=== PATIENT | male | born 1955 | race Caucasian/White ===

== ENCOUNTER 2020-08-07 12:45 | Inpatient (IN) | payer MEDICARE, MEDICAID ==
[~2020-08-07] VITALS: Ht 182.9 cm; Wt 88.0 kg
--- NOTE | ~2020-08-07 | OP ---
[address] [address] OPERATIVE REPORT Name: GRISELDA ZAVALA Room: [address] IN .R.#: [id number] Admission: 08/07/20 Attend Phys: Ameena Oconnor MD Discharge: Date of : 51 Report #: [id number] THIS REPORT FOR: //name// cc: MARIA C Abel family physician/PCP MARIAC Abel family physician/PCP ~ CC: [facility] physician/PCP Ameena Oconnor DATE OF SERVICE: 08/08/2020 PREOPERATIVE DIAGNOSIS: Acute cholecystitis. POSTOPERATIVE DIAGNOSIS: Acute cholecystitis. OPERATION: Laparoscopic cholecystectomy with intraoperative cholangiogram. SURGEON: Grady Munoz MD ANESTHESIA: General. ESTIMATED BLOOD LOSS: 50 mL. SPECIMEN: Gallbladder. DESCRIPTION OF PROCEDURE: After informed consent was obtained, the patient was brought to the operating room and placed supine. SCDs were placed and working, preoperative antibiotics were administered, general anesthesia was induced. The abdomen was prepped and draped in the usual sterile fashion. A 10 mm incision was made above the umbilicus. Fascia was incised and a trocar was placed. Pneumoperitoneum was established. Three right upper quadrant 5 mm ports were placed. Gallbladder was grasped at the fundus and retracted cephalad. Infundibulum was grasped and retracted laterally. I dissected out the cystic duct and the cystic artery. Given the amount of inflammation, I elected to perform a cholangiogram. The cystic duct was grasped and a small ductotomy was made. Cholangiogram catheter was inserted. Cholangiogram was performed. This demonstrated filling of the cystic duct, common bile duct, common hepatic duct, bifurcation of the hepatics, flow into the duodenum. This was normal. Catheter was then removed. The cystic duct was clipped and ligated leaving 2 clips on the remaining duct. The cystic artery was clipped and ligated leaving one clip on the remaining artery. Gallbladder was then taken off the liver bed with electrocautery. It was placed into an Endopouch and removed. Fascia was then closed with a [id number] 0 Vicryl. Skin was closed with 4-0 Monocryl. Incisions were [place] [address] OPERATIVE REPORT Name: GRISELDA ZAVALA Room: [address] IN [facility]#: [id number] Admission: 08/07/20 Attend Phys: Ameena Oconnor MD Discharge: Date of : 51 Report #: [id number] COMPLICATIONS: None. DISPOSITION: The patient was taken to recovery in satisfactory condition. By: [id number] Munoz MD /nt
[~2020-08-07 12:45] MED LIST: NOHOMEMEDICATIONS
[2020-08-07 12:57] VITALS: BP 134/83
[2020-08-07 13:28] LABS: ABSOLUTE BASOPHILS 0.1 thou/uL (0.0-0.2); ABSOLUTE EOSINOPHILS 0.1 thou/uL (0.0-0.7); ABSOLUTE LYMPHOCYTES 1.2 thou/uL (0.8-5.3); ABSOLUTE MONOCYTES 1.1 thou/uL (0.0-1.2); ABSOLUTE NEUTROPHILS 10.4 thou/uL (1.6-8.1); BASOPHILS 0.6 %; EOSINOPHILS 1.1 %; HEMATOCRIT 42.7 % (42.0-52.0); HEMOGLOBIN 14.5 gm/dL (14.0-18.0); LYMPHOCYTES 9.4 %; MCH 29.9 pg (26.0-34.0); MCHC 33.9 g/dL (28.0-37.0); MCV 88.2 fL (80.0-100.0); MONOCYTES 8.4 %; MPV 6.2 fl. (7.2-11.1); NUCLEATED RBCS 0 /100WBC; PLATELET COUNT* 484 thou/uL (150-400); POLYS 80.5 %; RBC 4.83 mil/uL (4.50-6.00); RDW-CV 14.8 % (10.5-14.5); WBC 12.9 thou/uL (4.0-11.0)
[2020-08-07 13:38] LABS: APTT 29.8 Seconds (25.0-31.3); INR 1.1; PROTIME 11.7 Seconds (9.20-11.50)
[2020-08-07 13:59] LABS: CALCIUM 8.9 mg/dL (8.5-10.1); CREATININE 1.2 mg/dL (0.6-1.3); POTASSIUM 4.4 mmol/L (3.5-5.1)
[2020-08-07 14:03] LABS: ALBUMIN 3.1 g/dL (3.4-5.0); TOTAL BILIRUBIN 0.8 mg/dL (<0.1-1.0); TOTAL PROTEIN 8.4 g/dL (6.4-8.2)
--- NOTE | 2020-08-07 16:03 | EKG ---
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
[2020-08-07 16:51] LABS: URINE BILIRUBIN NEGATIVE (Negative); URINE BLOOD NEGATIVE (Negative); URINE CLARITY CLEAR; URINE COLOR YELLOW; URINE GLUCOSE-RANDOM NEGATIVE (Negative); URINE KETONES NEGATIVE (Negative); URINE LEUKOCYTES-REFLEX NEGATIVE (Negative); URINE NITRITE-REFLEX NEGATIVE (Negative); URINE PROTEIN NEGATIVE (Negative); URINE SPECIFIC GRAVITY <= 1.005 (1.005-1.030); URINE UROBILINOGEN 0.2 E.U./dl (0.2-1.0)
[2020-08-07 17:27] VITALS: BP 127/70
[2020-08-07 18:43] VITALS: BP 136/78
[2020-08-07 20:53] VITALS: BP 132/84
[2020-08-08 00:10] VITALS: BP 127/87
[2020-08-08 04:40] VITALS: BP 122/80
[2020-08-08 06:10] LABS: HEMATOCRIT 40.3 % (42.0-52.0); HEMOGLOBIN 13.5 gm/dL (14.0-18.0); MCH 29.6 pg (26.0-34.0); MCHC 33.5 g/dL (28.0-37.0); MCV 88.1 fL (80.0-100.0); MPV 6.5 fl. (7.2-11.1); RBC 4.58 mil/uL (4.50-6.00); RDW-CV 14.8 % (10.5-14.5); WBC 11.4 thou/uL (4.0-11.0)
[2020-08-08 06:29] LABS: ALBUMIN 2.7 g/dL (3.4-5.0); CALCIUM 8.5 mg/dL (8.5-10.1); CREATININE 1.2 mg/dL (0.6-1.3); MAGNESIUM 2.1 mg/dL (1.8-2.4); POTASSIUM 4.1 mmol/L (3.5-5.1); TOTAL BILIRUBIN 0.8 mg/dL (<0.1-1.0); TOTAL PROTEIN 7.7 g/dL (6.4-8.2)
[2020-08-08 08:00] VITALS: BP 120/83
[2020-08-08 16:00] VITALS: BP 151/86
[2020-08-09 00:18] VITALS: BP 111/76
[2020-08-09 03:29] VITALS: BP 111/71
[2020-08-09 05:31] LABS: ALBUMIN 2.6 g/dL (3.4-5.0); CALCIUM 8.6 mg/dL (8.5-10.1); CREATININE 1.3 mg/dL (0.6-1.3); POTASSIUM 4.2 mmol/L (3.5-5.1); TOTAL BILIRUBIN 0.5 mg/dL (<0.1-1.0); TOTAL PROTEIN 7.4 g/dL (6.4-8.2)
[2020-08-09 07:40] VITALS: BP 119/73
[2020-08-09] MEDS ORDERED: AUGMENTIN 875-1 EACH PO (09:59)
[2020-08-09 16:00] VITALS: BP 113/70
[2020-08-09 22:45] VITALS: BP 110/68
[2020-08-10 03:12] VITALS: BP 120/73
[2020-08-10 07:40] VITALS: BP 140/88
[2020-08-10] MEDS ORDERED: MIRALAX17 GM PO (10:26)
[2020-08-10 11:27] VITALS: BP 140/88
[2020-08-10] MEDS ORDERED: AUGMENTIN 875-1 EACH PO (11:49)
[2020-08-10] MEDS ORDERED: PERCOCET PO (11:49)
[2020-08-10 12:20] VITALS: BP 140/88
--- NOTE | 2020-08-13 12:06 | PATH ---
[address] [address] PATHOLOGY RPT PROCEDURE Name: HERRINGDIPAK Room: [address] IN .R.#: [id number] Admission: 08/07/20 Date of : 51 Discharge: 08/10/20 Report #: [id number] Path Case #: [id number] [facility] Accession Number: [id number] . 01 Material submitted: . gallbladder - GALLBLADDER AND CONTENTS . 01 Clinician provided ICD-10: D81.0 E87.1 . 01 Clinical history: . CHOLECYSTITIS, CHOLELITHIASIS, HYPONATREMIA . 02 Diagnosis: Gallbladder and contents: - Chronic and acute ulcerative cholecystitis with mural fibrosis and cholelithiasis. (BUSHRA:gabriela; 08/13/2020) QMS 08/13/2020 1017 Local . 02 Electronically signed: . Zoltan Cisneros MD, Pathologist NPI- [id number] . 01 Gross description: . The specimen is received in formalin, labeled "Dipak Herring, gallbladder and contents". Received is a previously opened gallbladder measuring 8.3 x 3.4 x 3.0 cm in greatest dimensions displaying a pink-joseph and ragged serosal surface. Due to the nature of the serosal surface and disruption of the gallbladder, the proximal margin is not grossly discernible. Opening the specimen reveals a velvety, light brown mucosa with a gallbladder wall thickness of 0.1 cm. A single black, granular calculus is present, and no masses or lesions are noted grossly. The specimen is submitted representatively in cassette A1. (CAA; 08/09/2020) QAC/QAC 08/09/2020 1218 Local . 02 Pathologist provided ICD-10: K80.12 . 02 CPT . 766268 Specimen Comment: A courtesy copy of this report has been sent to [phone] Specimen Comment: [phone] Specimen Comment: Report sent to / DR HAMMONDS Performed at: 01 [place] [address] PATHOLOGY RPT PROCEDURE Name: HERRINGDIPAK P Room: [address] IN M.R.#: [id number] Admission: 08/07/20 Date of : 51 Discharge: 08/10/20 Report #: [id number] Path Case #: [id number] [address], [place], [place] [id number] MD Jean Flynn MD Phone: [phone] Performed at: 02 [facility] [address], [place], [place] [id number] MD Zoltan Cisneros MD Phone: [phone]
== END 2020-08-10 12:25 | disposition home or self-care (01) | DRG 418 ==
LOC: M.ERS 12:45 → M.2W 16:13 → M.TBA-ER 16:13 → M.2W 17:55 → M.ORTHSURG 08-08 21:09
PROVIDERS: Family Medicine; Internal Medicine; Nurse Practitioner Family; ADMIT Internal Medicine; ATTEND Internal Medicine
PROC: BF131ZZ Fluoroscopy of Gallbladder and Bile Ducts using Low Osmolar Contrast (ICD-10-PCS; principal; 2020-08-08)
PROC: 0FT44ZZ Resection of Gallbladder, Percutaneous Endoscopic Approach (ICD-10-PCS; principal; 2020-08-08)
DX: K80.00 Calculus of gallbladder with acute cholecystitis without obstruction (principal); E87.1 Hypo-osmolality and hyponatremia; R65.10 Systemic inflammatory response syndrome (SIRS) of non-infectious origin without acute organ dysfunction; E44.0 Moderate protein-calorie malnutrition; E86.0 Dehydration; E86.9 Volume depletion, unspecified; Z87.891 Personal history of nicotine dependence; Z68.26 Body mass index [BMI] 26.0-26.9, adult; Z20.828 Contact with and (suspected) exposure to other viral communicable diseases